=== PATIENT | male | born 1965 | race Caucasian/White ===

== ENCOUNTER 2019-08-04 18:17 | Inpatient (IN) | payer BC ==
[2019-08-04] MEDS ORDERED: SODIUM CHLORIDE 0.9% 500 ML 500 ML IV STA (19:11)
[2019-08-04] MEDS ORDERED: KETOROLAC 30 MG/ML 1 ML VIAL IVP STA (19:11)
--- NOTE | 2019-08-04 19:34 | ED ---
Recheck HPI <Moisés Leblanc - Last Filed: 08/04/19 21:45> - General Source: patient Mode of arrival: ambulatory Limitations: no limitations <Merly Garcia - Last Filed: 08/04/19 22:24> - General Chief Complaint: Recheck/Abnormal Lab/Rx Stated Complaint: back pain Time Seen by Provider: 08/04/19 18:48 - History of Present Illness Initial Comments: Patient is a 54-year-old male presenting to the emergency Department with complaints of jaundice. Patient states he is currently at [facility] ondary to alcohol and some and states he went to get his medicines this morning and the nurse instead that he looked yellow needed to go to the ER. Patient states he does use a tanning bed and thought he was just TM. Patient also complaining of low back pain. Patient states he had an injury to his back approximate 4 years ago after falling over tree. He denies any fractures or surgeries from this fall but states he has judgment and low back pain. Patient states it has been worse the last 2 days. He admits to history of hypertension, no other acute abnormalities. He denies any abdominal surgeries. He denies any abdominal pain at this time but states he often feels like his stomach feels "full." He denies fever, nausea, vomiting, diarrhea. He denies chest pain, shortness of breath. He states he only eats about once a day. He's been having regular bowel movements. He has no other complaints at this time. Upon arrival to the ER his vitals are stable. (Merly Gacria) - Related Data Allergies Allergy/AdvReac Type Severity Reaction Status Date / Time No Known Allergies Allergy Verified 08/04/19 20:35 Review of Systems ROS Other: All systems not noted in ROS Statement are negative. <Moisés Leblanc - Last Filed: 08/04/19 21:45> ROS Other: All systems not noted in ROS Statement are negative. <Merly Garcia - Last Filed: 08/04/19 22:24> ROS Statement: Those systems with pertinent positive or pertinent negative responses have been documented in the HPI. Past Medical History Past Medical History: Hyperlipidemia, Hypertension History of Any Multi-Drug Resistant Organisms: None Reported Past Surgical History: No Surgical Hx Reported Past Psychological History: No Psychological Hx Reported Smoking Status: Never smoker Past Alcohol Use History: None Reported Past Drug Use History: None Reported <RadhaNataliaMerly L - Last Filed: 08/04/19 22:24> General Exam Limitations: no limitations <Merly Garcia - Last Filed: 08/04/19 22:24> - General Exam Comments Initial Comments: GENERAL: Well-appearing, well-nourished and in no acute distress. HEAD: Atraumatic, normocephalic. EYES: Pupils equal round and reactive to light, extraocular movements intact, conjunctiva are normal. Bilateral scleral icterus. ENT: TMs normal, nares patent, oropharynx clear without exudates. Moist mucous me mbranes. NECK: Normal range of motion, supple without lymphadenopathy or JVD. LUNGS: Breath sounds clear to auscultation bilaterally and equal. No wheezes rales or rhonchi. HEART: Regular rate and rhythm without murmurs, rubs or gallops. ABDOMEN: Soft, nontender, normoactive bowel sounds. No guarding, no rebound. No masses appreciated. : Deferred EXTREMITIES: Normal range of motion, no pitting or edema. No clubbing or cyanosis. NEUROLOGICAL: Cranial nerves II through XII grossly intact. Normal speech, normal gait. PSYCH: Normal mood, normal affect. SKIN: Warm, Dry, normal turgor. Patient is jaundiced. (Merly Garcia) Course Vital Signs 08/04/19 08/04/19 08/04/19 18:32 20:53 22:03 Temperature 98.1 F 98 F Pulse Rate 85 87 89 Respiratory 16 16 16 Rate Blood Pressure 115/73 121/69 124/87 O2 Sat by Pulse 98 99 99 Oximetry Medical Decision Making - Lab Data Result diagrams: 08/04/19 19:45 08/04/19 19:45 <Moisés Leblanc - Last Filed: 08/04/19 21:45> - Lab Data Result diagrams: 08/04/19 19:45 08/04/19 19:45 <Merly Garcia - Last Filed: 08/04/19 22:24> - Medical Decision Making I saw this patient in conjunction with the physician pharmacy technician assistant. I performed independent history and physical exam. Agree with case management. Case is discussed with Dr. Holguin, covering for gastroenterology, his treatment recommendations are incorporated. Case also discussed with Dr. Cisneros, covering surgery. (Moisés Leblanc) Patient is a 54-year-old male presenting from [facility] for jaundice. Patien t also has intermittent abdominal pain and fullness. His vitals are stable here. Patient is jaundiced on exam as well as scleral icterus. Patient's coags are normal, sodium is low at 131, glucose is 354, bilirubin is 15.8, elevated liver enzymes including alk phos at 1044. Serum alcohol and Tylenol level was normal. Ultrasound of the liver shows hepatomegaly, gallbladder sludge and wall thickening, dilated common duct at 1.5 cm. patient was given fluids, pain control. Case was discussed with Dr. Leblanc. Patient will be admitted for transaminitis, cholecystitis under Dr. Jerez with consult to GI and surgery. Patient was started on antibiotics. Patient is in agreement with this plan of care. (Merly Garcia) - Lab Data Lab Results 08/04/19 08/04/19 08/04/19 Range/Units 19:45 19:45 19:45 WBC 10.1 (3.8-10.6) k/uL RBC 3.40 L (4.30-5.90) m/uL Hgb 11.9 L (13.0-17.5) gm/dL Hct 36.5 L (39.0-53.0) % MCV 107.4 H (80.0-100.0) fL MCH 35.1 H (25.0-35.0) pg MCHC 32.7 (31.0-37.0) g/dL RDW 13.5 (11.5-15.5) % Plt Count 239 (150-450) k/uL Neutrophils % 83 % Lymphocytes % 7 % Monocytes % 7 % Eosinophils % 2 % Basophils % 0 % Neutrophils # 8.3 H (1.3-7.7) k/uL Lymphocytes # 0.7 L (1.0-4.8) k/uL Monocytes # 0.7 (0-1.0) k/uL Eosinophils # 0.2 (0-0.7) k/uL Basophils # 0.0 (0-0.2) k/uL Macrocytosis Moderate PT 9.9 (9.0-12.0) sec INR 0.9 (<1.2) APTT 24.4 (22.0-30.0) sec Sodium 131 L (137-145) mmol/L Potassium 4.5 (3.5-5.1) mmol/L Chloride 96 L (98-107) mmol/L Carbon Dioxide 20 L (22-30) mmol/L Anion Gap 15 mmol/L BUN 19 (9-20) mg/dL Creatinine 0.60 L (0.66-1.25) mg/dL Est GFR (CKD-EPI)AfAm >90 (>60 ml/min/1.73 sqM) Est GFR (CKD-EPI)NonAf >90 (>60 ml/min/1.73 sqM) Glucose 354 H (74-99) mg/dL Calcium 9.7 (8.4-10.2) mg/dL Magnesium 1.7 (1.6-2.3) mg/dL Total Bilirubin 15.8 H* (0.2-1.3) mg/dL AST 244 H (17-59) U/L ALT 179 H (4-49) U/L Alkaline Phosphatase 1044 H (38-126) U/L Total Protein 6.7 (6.3-8.2) g/dL Albumin 3.8 (3.5-5.0) g/dL Amylase 32 (30-110) U/L Lipase 21 L (23-300) U/L Acetaminophen <10.0 ug/mL Serum Alcohol <10 mg/dL Disposition <Moisés Leblanc - Last Filed: 08/04/19 21:45> Is patient prescribed a controlled substance at d/c from ED?: No Decision Date: 08/04/19 Decision Time: 21:29 <Merly Garcia - Last Filed: 08/04/19 22:24> Clinical Impression: Cholecystitis, Transaminitis, Jaundice Disposition: ADMITTED IP TO THIS [facility] Condition: Stable
[2019-08-04 20:47] LABS: Basophils % (A) 0 %; Eosinophils # (A) 0.2 k/uL (0-0.7); Eosinophils % (A) 2 %; HCT 36.5 % (39.0-53.0); HGB 11.9 gm/dL (13.0-17.5); Lymphocytes # (A) 0.7 k/uL (1.0-4.8); Lymphocytes % (A) 7 %; MCH 35.1 pg (25.0-35.0); MCHC 32.7 g/dL (31.0-37.0); MCV 107.4 fL (80.0-100.0); Macrocytosis Moderate; Monocytes # (A) 0.7 k/uL (0-1.0); Monocytes % (A) 7 %; Neutrophils # (A) 8.3 k/uL (1.3-7.7); Neutrophils % (A) 83 %; Platelet Count 239 k/uL (150-450); RDW 13.5 % (11.5-15.5); WBC 10.1 k/uL (3.8-10.6)
--- NOTE | 2019-08-04 20:47 | US ---
EXAMINATION TYPE: US liver DATE OF EXAM: 08/04/2019 COMPARISON: NONE CLINICAL HISTORY: jaundice. Jaundice. Bloated. HTN. Hyperlipidemia. EXAM MEASUREMENTS: Liver Length: 18.5 cm Gallbladder Wall: 0.41 cm CBD: 1.46 cm Right Kidney: 12.4 x 5.9 x 6.4 cm Pancreas: Limited. Liver: Heterogeneous. Appears to have increased echogenicity. Measures enlarged. Hyperechoic, indist inct area seen left lobe: 3.0 x 3.3 x 2.5 cm. Gallbladder: Appears distended and has internal echoes. Measures 10.4 cm in length and 4.5 cm in wid th. Wall appears to be thickened. Evidence for sonographic Arciniega's sign: No CBD: dilated. Right Kidney: No hydronephrosis or masses seen IMPRESSION: 1. Hepatomegaly. 2. Possible hemangioma within the liver. Other etiologies are not excluded. This is not well-visualiz ed left lobe liver. 3. Gallbladder sludge and wall thickening. Correlate for acute cholecystitis. 4. Dilated common bile duct at 1.5 cm.
--- NOTE | 2019-08-04 20:49 | XR ---
EXAMINATION TYPE: XR lumbar spine 2 or 3V DATE OF EXAM: 08/04/2019 COMPARISON: None HISTORY: Pain TECHNIQUE: Three-view lumbar spine FINDINGS: There are 5 lumbar-type vertebral bodies. The pedicles are intact. Disc heights are preserv ed. Vertebral body heights are preserved. Some spondylolysis of the thoracolumbar junction is present . Note is made of a biliary stent. IMPRESSION: 1. No acute osseous abnormality lumbar spine.
[2019-08-04 20:51] LABS: ALT 179 U/L (4-49); AST 244 U/L (17-59); Acetaminophen <10.0 ug/mL; African American GFR (CKD) >90 (>60 ml/min/1.73 sqM); Albumin 3.8 g/dL (3.5-5.0); Alcohol <10 mg/dL; Alkaline Phosphatase 1044 U/L (38-126); Amylase 32 U/L (30-110); Anion Gap 15 mmol/L; Blood Urea Nitrogen 19 mg/dL (9-20); Calcium 9.7 mg/dL (8.4-10.2); Carbon Dioxide 20 mmol/L (22-30); Chloride 96 mmol/L (98-107); Glucose 354 mg/dL (74-99); Magnesium 1.7 mg/dL (1.6-2.3); Non-African American GFR(CKD) >90 (>60 ml/min/1.73 sqM); Potassium 4.5 mmol/L (3.5-5.1); Sodium 131 mmol/L (137-145); Total Protein 6.7 g/dL (6.3-8.2)
[2019-08-04 21:05] LABS: Total Bilirubin 15.8 mg/dL (0.2-1.3)
[2019-08-04 21:13] LABS: INR 0.9 (<1.2); Partial Thromboplastin Time 24.4 sec (22.0-30.0); Prothrombin Time 9.9 sec (9.0-12.0)
[2019-08-04] MEDS ORDERED: IBUPROFEN 400 MG TAB PO PRN (21:27)
[2019-08-04] MEDS ORDERED: NALOXONE 0.4 MG/ML 1 ML VIAL IV PRN (21:27)
[2019-08-04] MEDS ORDERED: ONDANSETRON 4 MG/2 ML VIAL IVP PRN (21:27)
[2019-08-04] MEDS ORDERED: PIPERACILLIN-TAZOBACTAM 3.375 GM in SODIUM CHLORIDE 0.9% 100 ML IVPB STA (21:44)
[2019-08-04] MEDS ORDERED: LORazepam 2 MG/ML INJ IV PRN ×3 (21:59)
[2019-08-04] MEDS ORDERED: THIAMINE 100 MG/ML 2 ML VIAL IM STA (21:59)
[2019-08-04] MEDS: THIAMINE 100 MG TAB PO SCH (23:03)
[2019-08-04] MEDS: KETOROLAC 30 MG/ML 1 ML VIAL IVP PRN (23:09)
[2019-08-04] MEDS: traZODone HCL 50 MG TAB PO SCH (23:56)
[2019-08-04] MEDS: SODIUM CHLORIDE 0.9% 1,000 ML IV SCH (23:57)
[2019-08-05] MEDS: KETOROLAC 30 MG/ML 1 ML VIAL IVP PRN ×3 (04:29→16:55)
[2019-08-05 04:59] LABS: Appearance,Urine Clear (Clear); Bilirubin,Urine 3+ (Negative); Blood,Urine Negative (Negative); Color,Urine Dark Brown; Glucose,Urine (UA) 3+ (Negative); Ketones,Urine Negative (Negative); Leukocyte Esterase,Urine Negative (Negative); Nitrite,Urine Negative (Negative); PH, Urine 5.5 (5.0-8.0); Protein,Urine Negative (Negative); Specific Gravity,Urine 1.019 (1.001-1.035)
[2019-08-05] MEDS: MORPHINE SULFATE 4 MG/ML SYRINGE IV PRN ×4 (07:28→22:05)
[2019-08-05] MEDS: THIAMINE 100 MG TAB PO SCH ×2 (10:51→16:55)
[2019-08-05] MEDS: SODIUM CHLORIDE 0.9% 1,000 ML IV SCH (10:55)
--- NOTE | 2019-08-05 14:00 | P.GSCN ---
<Vanita Palacio - Last Filed: 08/05/19 13:51> History of Present Illness Consult date: 08/05/19 Reason for Consult: Transaminitis, cholecystitis, jaundice Requesting physician: Merly Garcia History of present illness: CHIEF COMPLAINT: Jaundice HISTORY OF PRESENT ILLNESS: 54-year-old male who is currently at [facility] for rehab due to alcohol abuse. Patient reports the staff at [facility] noticed he was becoming more jaundiced and recommended he come to the hospital. Patient reports he has been having back pain over the last few months. He denies abdominal pain. Denies intolerance to greasy or fatty foods. Patient reports last drink was 2 weeks ago. PAST MEDICAL HISTORY: See list. PAST SURGICAL HISTORY: See list. MEDICATIONS: See list. ALLERGIES: See list. SOCIAL HISTORY: History of alcohol abuse REVIEW OF SYSTEMS: CONSTITUTIONAL: Denies fever or chills. HEENT: Denies blurred vision, vision changes, or eye pain. Denies hemoptysis ENDOCRINE: Denies heat or cold intolerance. CARDIOVASCULAR: Denies chest pain or pressure. RESPIRATORY: No shortness of breath. GASTROINTESTINAL: See HPI for pertinent findings NEURO: Denies history of seizures. PSYCH: No suicidal ideation HEMATOLOGIC: Denies bleeding disorders. LYMPHATIC: The patient denies any lumps and bumps around the neck. GENITOURINARY: Denies any blood in urine or increased urinary frequency. MUSCULOSKELETAL: Reports back pain. Denies myalgias. Denies joint swelling. Denies decreased range of motion beyond patients baseline. SKIN: Denies pruitis. Denies rash. Reports jaundice PHYSICAL EXAM: VITAL SIGNS: Reviewed GENERAL: Well-developed in no acute distress. HEENT: Bilateral sclera icterus. Extraocular movements grossly intact. Moist buccal mucosa. Head is atraumatic, normocephalic. Hears conversational speech. No nasal drainage. NECK: Supple without lymphadenopathy. CHEST: Non-labored respirations and equal bilateral excursions. CARDIOVASCULAR: Regular rate with regular rhythm. Palpable 2+ radial pulses. ABDOMEN: Soft. Nondistended. Nontender. MUSCULOSKELETAL: No clubbing, cyanosis or edema. NEUROLOGIC: No focal or lateralizing signs. Cranial nerves II through XII grossly intact. PSYCH: Appropriate affect. Alert and oriented to person, place and time. SKIN: Well perfused. Good skin turgor. Jaundice LABORATORY DATA: WBC 10.1. Hemoglobin 11.9. Platelet count 239. Sodium 131. Potassium 4.5. BUN 19. Creatinine 0.60. Bilirubin 15.8. AST 244. ALT 179. Alkaline phosphatase 1044. IMAGING: Liver ultrasound: Hepatomegaly. Possible hemangioma within the liver. Gal lbladder sludge and wall thickening. Correlate for acute cholecystitis. Dilated common bile duct at 1.5 cm. ASSESSMENT: 1. Jaundice 2. History of alcohol abuse 3. Hepatomegaly 4. Transaminitis 5. Hyperbilirubinemia 6. Abnormal ultrasound revealing gallbladder sludge and wall thickening PLAN: NPO until evaluated by GI service. Okay for liquid diet from surgical standpoint Monitor CMP GI on consult. Await recommendations and input No immediate plans for cholecystectomy Nurse practitioner note has been reviewed by physician. Signing provider agrees with the documented findings, assessment, and plan of care. Past Medical History Past Medical History: Hyperlipidemia, Hypertension Additional Past Medical History / Comment(s): CHRONIC BACK PAIN R/T FALLING OUT OF TREE STAND 3 YEARS AGO; TROUBLE SLEEPING; 15 YEARS AGO FELL ON ICE AND HAD FLUID DRAINED OUT OF HEAD AT [facility] IN [facility] History of Any Multi-Drug Resistant Organisms: None Reported Past Surgical History: No Surgical Hx Reported Past Anesthesia/Blood Transfusion Reactions: No Reported Reaction Past Psychological History: No Psychological Hx Reported Smoking Status: Never smoker Past Alcohol Use History: None Reported Additional Past Alcohol Use History / Comment(s): STATES DRANK [employer] FOR MANY YEARS; LAST DRINK 07/22/2019; CURRENTLY STAYING AT [facility] Past Drug Use History: None Reported Medications and Allergies Home Medications Medication Instructions Recorded Confirmed Type Acetaminophen Tab [Tylenol] 650 mg PO Q4H MDD 6 TABS/24 HRS 08/04/19 08/04/19 History Chlorpheniramine Maleate 4 mg PO Q4H PRN 08/04/19 08/04/19 History [Chlor-Trimeton] Mag Hydrox/Aluminum Hyd/Simeth 30 ml PO Q4H PRN MDD UP 08/04/19 08/04/19 History [Mylanta Maximum Strength Liq] Multivitamins, Thera [Multivitamin 1 tab PO DAILY 08/04/19 08/04/19 History (formulary)] Naproxen 500 mg PO BID@0600,1730 08/04/19 08/04/19 History Propranolol HCl [Inderal Xl] 80 mg PO DAILY@0600 08/04/19 08/04/19 History Thiamine HCl [Vitamin B-1] 100 mg PO DAILY 08/04/19 08/04/19 History amLODIPine [Norvasc] 5 mg PO DAILY@0600 08/04/19 08/04/19 History traZODone HCL 50 mg PO HS@2200 08/04/19 08/04/19 History Allergies Allergy/AdvReac Type Severity Reaction Status Date / Time No Known Allergies Allergy Verified 08/04/19 22:45 Surgical - Exam Vital Signs Temp Pulse Resp BP Pulse Ox 98.1 F 85 16 115/73 98 08/04/19 18:32 08/04/19 18:32 08/04/19 18:32 08/04/19 18:32 08/04/19 18:32 Results - Labs 08/04/19 19:45 08/04/19 19:45 Abnormal Lab Results - Last 24 Hours (Table) 08/04/19 08/04/19 08/05/19 Range/Units 19:45 19:45 04:50 RBC 3.40 L (4.30-5.90) m/uL Hgb 11.9 L (13.0-17.5) gm/dL Hct 36.5 L (39.0-53.0) % MCV 107.4 H (80.0-100.0) fL MCH 35.1 H (25.0-35.0) pg Neutrophils # 8.3 H (1.3-7.7) k/uL Lymphocytes # 0.7 L (1.0-4.8) k/uL Sodium 131 L (137-145) mmol/L Chloride 96 L (98-107) mmol/L Carbon Dioxide 20 L (22-30) mmol/L Creatinine 0.60 L (0.66-1.25) mg/dL Glucose 354 H (74-99) mg/dL Total Bilirubin 15.8 H* (0.2-1.3) mg/dL AST 244 H (17-59) U/L ALT 179 H (4-49) U/L Alkaline Phosphatase 1044 H (38-126) U/L Lipase 21 L (23-300) U/L Urine Glucose (UA) 3+ H (Negative) Urine Bilirubin 3+ H (Negative) Diabetes panel 08/04/19 Range/Units 19:45 Sodium 131 L (137-145) mmol/L Potassium 4.5 (3.5-5.1) mmol/L Chloride 96 L (98-107) mmol/L Carbon Dioxide 20 L (22-30) mmol/L BUN 19 (9-20) mg/dL Creatinine 0.60 L (0.66-1.25) mg/dL Glucose 354 H (74-99) mg/dL Calcium 9.7 (8.4-10.2) mg/dL AST 244 H (17-59) U/L ALT 179 H (4-49) U/L Alkaline Phosphatase 1044 H (38-126) U/L Total Protein 6.7 (6.3-8.2) g/dL Albumin 3.8 (3.5-5.0) g/dL Calcium panel 08/04/19 Range/Units 19:45 Calcium 9.7 (8.4-10.2) mg/dL Albumin 3.8 (3.5-5.0) g/dL Pituitary panel 08/04/19 Range/Units 19:45 Sodium 131 L (137-145) mmol/L Potassium 4.5 (3.5-5.1) mmol/L Chloride 96 L (98-107) mmol/L Carbon Dioxide 20 L (22-30) mmol/L BUN 19 (9-20) mg/dL Creatinine 0.60 L (0.66-1.25) mg/dL Glucose 354 H (74-99) mg/dL Calcium 9.7 (8.4-10.2) mg/dL Adrenal panel 08/04/19 Range/Units 19:45 Sodium 131 L (137-145) mmol/L Potassium 4.5 (3.5-5.1) mmol/L Chloride 96 L (98-107) mmol/L Carbon Dioxide 20 L (22-30) mmol/L BUN 19 (9-20) mg/dL Creatinine 0.60 L (0.66-1.25) mg/dL Glucose 354 H (74-99) mg/dL Calcium 9.7 (8.4-10.2) mg/dL Total Bilirubin 15.8 H* (0.2-1.3) mg/dL AST 244 H (17-59) U/L ALT 179 H (4-49) U/L Alkaline Phosphatase 1044 H (38-126) U/L Total Protein 6.7 (6.3-8.2) g/dL Albumin 3.8 (3.5-5.0) g/dL <Zoey Cisneros N - Last Filed: 08/05/19 16:45> History of Present Illness History of present illness: Patient seen and evaluated. Ultrasound of the gallbladder independently reviewed with moderately dilated common bile duct including elevated total bilirubin over 15. Additionally, patient does have gallbladder sludge. Clinical picture is inconsistent with acute cholecystitis. WBC count normal. GI consultation pending. May benefit from MRCP including evaluation of the pancreas to exclude underlying neoplasm. Surgical - Exam Vital Signs Temp Pulse Resp BP Pulse Ox 98.1 F 85 16 115/73 98 08/04/19 18:32 08/04/19 18:32 08/04/19 18:32 08/04/19 18:32 08/04/19 18:32 Results - Labs 08/04/19 19:45 08/05/19 14:49 Abnormal Lab Results - Last 24 Hours (Table) 08/04/19 08/04/19 08/05/19 Range/Units 19:45 19:45 04:50 RBC 3.40 L (4.30-5.90) m/uL Hgb 11.9 L (13.0-17.5) gm/dL Hct 36.5 L (39.0-53.0) % MCV 107.4 H (80.0-100.0) fL MCH 35.1 H (25.0-35.0) pg Neutrophils # 8.3 H (1.3-7.7) k/uL Lymphocytes # 0.7 L (1.0-4.8) k/uL Sodium 131 L (137-145) mmol/L Chloride 96 L (98-107) mmol/L Carbon Dioxide 20 L (22-30) mmol/L Creatinine 0.60 L (0.66-1.25) mg/dL Glucose 354 H (74-99) mg/dL Total Bilirubin 15.8 H* (0.2-1.3) mg/dL AST 244 H (17-59) U/L ALT 179 H (4-49) U/L Alkaline Phosphatase 1044 H (38-126) U/L Total Protein (6.3-8.2) g/dL Albumin (3.5-5.0) g/dL Lipase 21 L (23-300) U/L Urine Glucose (UA) 3+ H (Negative) Urine Bilirubin 3+ H (Negative) 08/05/19 Range/Units 14:49 RBC (4.30-5.90) m/uL Hgb (13.0-17.5) gm/dL Hct (39.0-53.0) % MCV (80.0-100.0) fL MCH (25.0-35.0) pg Neutrophils # (1.3-7.7) k/uL Lymphocytes # (1.0-4.8) k/uL Sodium (137-145) mmol/L Chloride (98-107) mmol/L Carbon Dioxide (22-30) mmol/L Creatinine 0.62 L (0.66-1.25) mg/dL Glucose 207 H (74-99) mg/dL Total Bilirubin 16.1 H* (0.2-1.3) mg/dL AST 290 H (17-59) U/L ALT 185 H (4-49) U/L Alkaline Phosphatase 851 H (38-126) U/L Total Protein 6.2 L (6.3-8.2) g/dL Albumin 3.4 L (3.5-5.0) g/dL Lipase (23-300) U/L Urine Glucose (UA) (Negative) Urine Bilirubin (Negative) Diabetes panel 08/04/19 08/05/19 Range/Units 19:45 14:49 Sodium 131 L 137 (137-145) mmol/L Potassium 4.5 4.3 (3.5-5.1) mmol/L Chloride 96 L 104 (98-107) mmol/L Carbon Dioxide 20 L 22 (22-30) mmol/L BUN 19 15 (9-20) mg/dL Creatinine 0.60 L 0.62 L (0.66-1.25) mg/dL Glucose 354 H 207 H (74-99) mg/dL Calcium 9.7 9.3 (8.4-10.2) mg/dL AST 244 H 290 H (17-59) U/L ALT 179 H 185 H (4-49) U/L Alkaline Phosphatase 1044 H 851 H (38-126) U/L Total Protein 6.7 6.2 L (6.3-8.2) g/dL Albumin 3.8 3.4 L (3.5-5.0) g/dL Calcium panel 08/04/19 08/05/19 Range/Units 19:45 14:49 Calcium 9.7 9.3 (8.4-10.2) mg/dL Albumin 3.8 3.4 L (3.5-5.0) g/dL Pituitary panel 08/04/19 08/05/19 Range/Units 19:45 14:49 Sodium 131 L 137 (137-145) mmol/L Potassium 4.5 4.3 (3.5-5.1) mmol/L Chloride 96 L 104 (98-107) mmol/L Carbon Dioxide 20 L 22 (22-30) mmol/L BUN 19 15 (9-20) mg/dL Creatinine 0.60 L 0.62 L (0.66-1.25) mg/dL Glucose 354 H 207 H (74-99) mg/dL Calcium 9.7 9.3 (8.4-10.2) mg/dL Adrenal panel 08/04/19 08/05/19 Range/Units 19:45 14:49 Sodium 131 L 137 (137-145) mmol/L Potassium 4.5 4.3 (3.5-5.1) mmol/L Chloride 96 L 104 (98-107) mmol/L Carbon Dioxide 20 L 22 (22-30) mmol/L BUN 19 15 (9-20) mg/dL Creatinine 0.60 L 0.62 L (0.66-1.25) mg/dL Glucose 354 H 207 H (74-99) mg/dL Calcium 9.7 9.3 (8.4-10.2) mg/dL Total Bilirubin 15.8 H* 16.1 H* (0.2-1.3) mg/dL AST 244 H 290 H (17-59) U/L ALT 179 H 185 H (4-49) U/L Alkaline Phosphatase 1044 H 851 H (38-126) U/L Total Protein 6.7 6.2 L (6.3-8.2) g/dL Albumin 3.8 3.4 L (3.5-5.0) g/dL Assessment and Plan (1) Alcohol abuse Current Visit: Yes Status: Acute Code(s): F10.10 - ALCOHOL ABUSE, UNCOMPLICATED SNOMED Code(s): 46999339 (2) Common bile duct dilation Current Visit: Yes Status: Acute Code(s): K83.8 - OTHER SPECIFIED DISEASES OF BILIARY TRACT SNOMED Code(s): 157990316 (3) Gallbladder sludge Current Visit: Yes Status: Acute Code(s): K82.8 - OTHER SPECIFIED DISEASES OF GALLBLADDER SNOMED Code(s): 42119205 (4) Jaundice Current Visit: Yes Status: Acute Code(s): R17 - UNSPECIFIED JAUNDICE SNOMED Code(s): 35282005 (5) Transaminitis Current Visit: Yes Status: Acute Code(s): R74.0 - NONSPEC ELEV OF LEVELS OF TRANSAMNS & LACTIC ACID DEHYDRGNSE SNOMED Code(s): 634768931
[2019-08-05 15:47] LABS: ALT 185 U/L (4-49); AST 290 U/L (17-59); African American GFR (CKD) >90 (>60 ml/min/1.73 sqM); Albumin 3.4 g/dL (3.5-5.0); Alkaline Phosphatase 851 U/L (38-126); Anion Gap 11 mmol/L; Blood Urea Nitrogen 15 mg/dL (9-20); Calcium 9.3 mg/dL (8.4-10.2); Carbon Dioxide 22 mmol/L (22-30); Chloride 104 mmol/L (98-107); Glucose 207 mg/dL (74-99); Non-African American GFR(CKD) >90 (>60 ml/min/1.73 sqM); Potassium 4.3 mmol/L (3.5-5.1); Sodium 137 mmol/L (137-145); Total Protein 6.2 g/dL (6.3-8.2)
[2019-08-05 15:54] LABS: Total Bilirubin 16.1 mg/dL (0.2-1.3)
--- NOTE | 2019-08-05 17:33 | HP ---
HISTORY AND PHYSICAL CHIEF COMPLAINT: Back pain and jaundice. HISTORY OF PRESENT ILLNESS: This is the first admission for this 54-year-old white male who was sent over from [place], where he is being treated for alcoholism. He was complaining of flank pain, and they thought he looked jaundiced. He came to the emergency room. He has been having discomfort in the right upper quadrant on and off for about 3 years. In the emergency room his bilirubin was 15.8, AST was 244 and his ALT 179. Alkaline phosphatase was 1044. He has had no fever or chills. He has had no vomiting. REVIEW OF SYSTEMS: He has had no other complaints, problems or symptoms. He has not noticed dark urine or acholic stool. He review of systems is otherwise normal. Past medical history, family history, and personal and social histories reveal he is NOT ALLERGIC TO ANY MEDICATION. He has had no surgery. He is treated for hypercholesterolemia and hyperlipidemia. He does not smoke. PHYSICAL EXAMINATION: Blood pressure is 140/85 with a pulse of 78, respirations of 36, and he is afebrile. In general he he appeared to be jaundiced. He was not in any acute distress. Skin was dry. Lymph nodes were not enlarged. Head, ears, eyes, nose, mouth and throat were normal. Neck veins were not distended. Thyroid was not enlarged. Chest is clear. Cardiac exam is normal. The abdomen is soft and slightly tender in the right upper quadrant. He had no flank tenderness. Bowel sounds were present. Extremities were normal. Neurologically he is intact. IMPRESSION: 1. Obstructive jaundice. 2. Alcoholism. 3. History of hypertension. 4. History of hyperlipidemia. PLAN: 1. Bed rest. 2. IV fluids. 3. Consult with Gastroenterology and General Surgery. MMODL / IJN: [id number] /
--- NOTE | 2019-08-05 17:37 | PN ---
PROGRESS NOTE DATE OF SERVICE: 08/04/2019 CHIEF COMPLAINT: Obstructive jaundice. HISTORY OF PRESENT ILLNESS: This gentleman has been stable. He has had no fever, chills, vomiting, etc. PHYSICAL EXAMINATION: He is deeply jaundiced. Chest is clear. Cardiac exam is normal. Abdomen is soft, nontender. IMPRESSION: 1. Back pain. 2. Alcoholism. 3. Probable obstructive jaundice. PLAN: Await ERCP. MMODL / IJN: [id number] /
[2019-08-05] MEDS: traZODone HCL 50 MG TAB PO SCH (20:07)
[2019-08-06] MEDS: MORPHINE SULFATE 4 MG/ML SYRINGE IV PRN ×4 (02:45→15:40)
[2019-08-06] MEDS: SODIUM CHLORIDE 0.9% 1,000 ML IV SCH ×2 (02:46→15:41)
--- NOTE | 2019-08-06 05:59 | P.CONS ---
History of Present Illness - Reason for Consult Consult date: 08/05/19 Jaundice, elevated liver enzymes Requesting physician: Thang Jerez - Chief Complaint Abnormal laboratory evaluation, jaundice - History of Present Illness 54-year-old male with a medical history significant for hypertension, hyperlipidemia and alcohol abuse who presented due to abnormal outpatient laboratory evaluation and jaundice. The patient reports dark urine over the 4-5 days prior to presentation and yellowing of the skin over a few days prior to presentation. He denies any associated abdominal pain. He does report back pain after a fall 3-4 years ago which occurs intermittently. No association of this back pain with pain in his abdomen. Patient has been sober for approximately 2 weeks. Prior to that he had been drinking heavily since he was approximately 16 years old. Alcohol intake consisted of a 6 pack, or a 1/5 of liquor. He denies any unintentional weight loss. No family history or personal history of liver or pancreas disease. Ultrasound of the abdomen was significant for a 1.5 cm common bile ducts with gallbladder sludge and hepatomegaly. Laboratory evaluation on presentation was significant for a WBC 10.1, hemoglobin 11.9, platelet count 239,000, total bilirubin 15.8, alkaline phosphatase 1044, AST 244 and ALT 179 with an INR of 0.9 and negative testing for acetaminophen. Review of Systems REVIEW OF SYSTEMS: CONSTITUTIONAL: Denies any fevers, chills, weight change or fatigue. CARDIOVASCULAR: Denies any chest pain, palpitations high or low blood pressures RESPIRATORY: Denies any shortness of breath, hemoptysis or cough. GENITOURINARY: No dysuria or hematuria, but does report dark urine. MUSCULOSKELETAL: No weakness reported. SKIN: Denies any new rashes or lesions, or pallor but has noted jaundice. PSYCHIATRIC: Denies any depression or anxiety, patient has a known history of alcohol abuse. NEUROLOGY: Denies headache, denies any new focal deficits. EARS/NOSE/THROAT: No recent hearing change, congestion, nasal discharge or sore throat. EYES: No pain in eyes, discharge or change in vision. GASTROINTESTINAL: As per HPI. Past Medical History Past Medical History: Hyperlipidemia, Hypertension Additional Past Medical History / Comment(s): CHRONIC BACK PAIN R/T FALLING OUT OF TREE STAND 3 YEARS AGO; TROUBLE SLEEPING; 15 YEARS AGO FELL ON ICE AND HAD FLUID DRAINED OUT OF HEAD AT [facility] History of Any Multi-Drug Resistant Organisms: None Reported Past Surgical History: No Surgical Hx Reported Past Anesthesia/Blood Transfusion Reactions: No Reported Reaction Past Psychological History: No Psychological Hx Reported Smoking Status: Never smoker Past Alcohol Use History: None Reported Additional Past Alcohol Use History / Comment(s): STATES DRANK CHURCH LITE AND SCHNAPPS FOR MANY YEARS; LAST DRINK 07/22/2019; CURRENTLY STAYING AT [place] Past Drug Use History: None Reported Additional History: Family history: Were reviewed with the patient and noncontributory to current medical presentation. Medications and Allergies Home Medications Medication Instructions Recorded Confirmed Type Acetaminophen Tab [Tylenol] 650 mg PO Q4H MDD 6 TABS/24 HRS 08/04/19 08/04/19 History Chlorpheniramine Maleate 4 mg PO Q4H PRN 08/04/19 08/04/19 History [Chlor-Trimeton] Mag Hydrox/Aluminum Hyd/Simeth 30 ml PO Q4H PRN MDD UP 08/04/19 08/04/19 History [Mylanta Maximum Strength Liq] Multivitamins, Thera [Multivitamin 1 tab PO DAILY 08/04/19 08/04/19 History (formulary)] Naproxen 500 mg PO BID@0600,1730 08/04/19 08/04/19 History Propranolol HCl [Inderal Xl] 80 mg PO DAILY@0600 08/04/19 08/04/19 History Thiamine HCl [Vitamin B-1] 100 mg PO DAILY 08/04/19 08/04/19 History amLODIPine [Norvasc] 5 mg PO DAILY@0600 08/04/19 08/04/19 History traZODone HCL 50 mg PO HS@2200 08/04/19 08/04/19 History Allergies Allergy/AdvReac Type Severity Reaction Status Date / Time No Known Allergies Allergy Verified 08/04/19 22:45 Physical Exam Vitals: Vital Signs Temp Pulse Pulse Resp BP BP BP 08/05/19 15:00 98.2 F 96 16 128/72 08/05/19 09:30 97.5 F L 08/05/19 07:33 78 20 145/79 08/05/19 04:48 70 16 08/05/19 02:03 98.9 F 70 18 101/66 08/05/19 00:00 79 18 08/04/19 22:57 98.1 F 79 18 134/91 08/04/19 22:03 98 F 89 16 124/87 08/04/19 20:53 87 16 121/69 08/04/19 18:32 98.1 F 85 16 115/73 Pulse Ox 08/05/19 15:00 94 L 08/05/19 09:30 08/05/19 07:33 96 08/05/19 04:48 08/05/19 02:03 99 08/05/19 00:00 08/04/19 22:57 98 08/04/19 22:03 99 08/04/19 20:53 99 08/04/19 18:32 98 Intake and Output 08/05/19 08/05/19 08/05/19 06:59 14:59 22:59 Intake Total 600 Balance 600 Intake: IV 600 Sodium Chloride 0.9% 1, 600 000 ml @ 75 mls/hr IV . [id number] [facility] Rx#:[id number] Other: Voiding Method Toilet Toilet # Voids 1 Weight 99.79 kg On physical examination, patient appears comfortable in no apparent distress. HEAD: Normocephalic, atraumatic. EYES: Scleral icterus. No conjunctival injection. MOUTH: No lesions, tongue midline. NECK: Trachea midline, no gross abnormalities. CHEST: Clear to auscultation with no wheezing or rhonchi appreciated. HEART: Regular rate and rhythm. ABDOMEN: Soft, nontender to palpation. Bowel sounds are positive. No organomegaly. No guarding or rigidity. EXTREMITIES: No pedal edema. SKIN: No rashes, jaundice. NEUROLOGIC: Alert and oriented x3. No focal deficits. Results CBC & Chem 7: 08/04/19 19:45 08/05/19 14:49 Labs: Abnormal Lab Results - Last 24 Hours (Table) 08/04/19 08/04/19 08/05/19 Range/Units 19:45 19:45 04:50 RBC 3.40 L (4.30-5.90) m/uL Hgb 11.9 L (13.0-17.5) gm/dL Hct 36.5 L (39.0-53.0) % MCV 107.4 H (80.0-100.0) fL MCH 35.1 H (25.0-35.0) pg Neutrophils # 8.3 H (1.3-7.7) k/uL Lymphocytes # 0.7 L (1.0-4.8) k/uL Sodium 131 L (137-145) mmol/L Chloride 96 L (98-107) mmol/L Carbon Dioxide 20 L (22-30) mmol/L Creatinine 0.60 L (0.66-1.25) mg/dL Glucose 354 H (74-99) mg/dL Total Bilirubin 15.8 H* (0.2-1.3) mg/dL AST 244 H (17-59) U/L ALT 179 H (4-49) U/L Alkaline Phosphatase 1044 H (38-126) U/L Lipase 21 L (23-300) U/L Urine Glucose (UA) 3+ H (Negative) Urine Bilirubin 3+ H (Negative) US - abdomen: report reviewed (Ultrasound of the abdomen with a 1.5 cm common bile duct, gallbladder sludge and hepatomegaly.) Assessment and Plan (1) Elevated liver enzymes Narrative/Plan: 54-year-old male presenting due to abnormal liver enzymes of the liver with associated jaundice and dark urine. This was noted over the past 4-5 days prior to presentation. He has a long-standing history of alcohol abuse and reports sobriety over the past few weeks. He denies any associated abdominal pain. He did have ultrasound of abdomen in evaluation which showed gallbladder sludge and a 1.5 cm common bile duct. Unclear if elevated liver enzymes are related to alcoholic hepatitis given his long-standing history of alcohol abuse, with plan for MRI/MRCP to rule out pancreatic mass causing obstruction, biliary obstruction from choledocholithiasis or other hepatobiliary etiology, liver serologies also ordered to rule out intrinsic liver disease. Current Visit: Yes Status: Acute Code(s): R74.8 - ABNORMAL LEVELS OF OTHER SERUM ENZYMES SNOMED Code(s): 754756783 (2) Alcohol abuse Current Visit: Yes Status: Acute Code(s): F10.10 - ALCOHOL ABUSE, UNCOMPLICATED SNOMED Code(s): 13631357 (3) Common bile duct dilation Current Visit: Yes Status: Acute Code(s): K83.8 - OTHER SPECIFIED DISEASES OF BILIARY TRACT SNOMED Code(s): 541469711 (4) Gallbladder sludge Current Visit: Yes Status: Acute Code(s): K82.8 - OTHER SPECIFIED DISEASES OF GALLBLADDER SNOMED Code(s): 48624425 (5) Jaundice Current Visit: Yes Status: Acute Code(s): R17 - UNSPECIFIED JAUNDICE SNOMED Code(s): 44877409 Plan: Supportive care Okay for diet as tolerated MRI of the abdomen with and without contrast ordered Continue to monitor CBC, CMP Full liver serologies including tumor markers ordered Appreciate recommendations from surgical service Continue supportive care Continue to monitor for signs or symptoms of alcohol withdrawal No plans for endoscopic evaluation at this time, and unless MRCP is consistent with choledocholithiasis will hold off Thank you for allowing us to participate in the care of this patient we will continue to follow
[2019-08-06] MEDS: THIAMINE 100 MG TAB PO SCH ×2 (07:00→17:42)
[2019-08-06 08:39] LABS: ALT 160 U/L (4-49); AST 237 U/L (17-59); African American GFR (CKD) >90 (>60 ml/min/1.73 sqM); Albumin 3.1 g/dL (3.5-5.0); Alkaline Phosphatase 760 U/L (38-126); Anion Gap 9 mmol/L; Bilirubin, Conjugated 8.3 mg/dL (0.0-0.3); Bilirubin, Delta 5.1 mg/dL (0.0-0.2); Bilirubin,Unconjugated 1.8 mg/dL (0.0-1.1); Blood Urea Nitrogen 10 mg/dL (9-20); Calcium 9.1 mg/dL (8.4-10.2); Carbon Dioxide 26 mmol/L (22-30); Chloride 102 mmol/L (98-107); Glucose 209 mg/dL (74-99); Non-African American GFR(CKD) >90 (>60 ml/min/1.73 sqM); Potassium 4.3 mmol/L (3.5-5.1); Sodium 137 mmol/L (137-145); Total Protein 5.8 g/dL (6.3-8.2)
[2019-08-06 08:42] LABS: Total Bilirubin 15.2 mg/dL (0.2-1.3)
[2019-08-06] MEDS: KETOROLAC 30 MG/ML 1 ML VIAL IVP PRN ×2 (10:25→17:00)
--- NOTE | 2019-08-06 10:44 | P.PN ---
<Vanita Palacio A - Last Filed: 08/06/19 10:39> Subjective Progress Note Date: 08/06/19 CHIEF COMPLAINT: Jaundice HISTORY OF PRESENT ILLNESS: Patient examined at the bedside with Dr. Cisneros. Patient denies abdominal pain. He reports back pain. Vital signs stable. He is afebrile. Bilirubin 15.2. AST 237. ALT 160. Alkaline phosphatase 760. PHYSICAL EXAM: VITAL SIGNS: Reviewed GENERAL: Well-developed in no acute distress. HEENT: Bilateral sclera icterus. Extraocular movements grossly intact. Moist buccal mucosa. Head is atraumatic, normocephalic. Hears conversational speech. No nasal drainage. NECK: Supple without lymphadenopathy. CHEST: Non-labored respirations and equal bilateral excursions. CARDIOVASCULAR: Regular rate with regular rhythm. Palpable 2+ radial pulses. ABDOMEN: Soft. Nondistended. Nontender. MUSCULOSKELETAL: No clubbing, cyanosis or edema. NEUROLOGIC: No focal or lateralizing signs. Cranial nerves II through XII grossly intact. PSYCH: Appropriate affect. Alert and oriented to person, place and time. SKIN: Well perfused. Good skin turgor. Jaundice ASSESSMENT: 1. Jaundice 2. History of alcohol abuse 3. Hepatomegaly 4. Transaminitis 5. Hyperbilirubinemia 6. Abnormal ultrasound revealing gallbladder sludge and wall thickening PLAN: Okay for diet from surgical standpoint. Defer to GI service MRI abdomen ordered by Dr. Holguin. Await results. Monitor CMP No immediate plans for cholecystectomy Nurse practitioner note has been reviewed by physician. Signing provider agrees with the documented findings, assessment, and plan of care. Objective - Vital Signs Vital signs: Vital Signs Temp 97.7 F 08/06/19 06:58 Pulse 66 08/06/19 06:58 Resp 16 08/06/19 06:58 BP 124/71 08/06/19 06:58 Pulse Ox 100 08/06/19 06:58 Intake & Output 08/05/19 08/06/19 08/06/19 18:59 06:59 18:59 Intake Total 600 Balance 600 Weight 99.79 kg Intake: IV 600 Sodium Chloride 0.9% 1, 600 000 ml @ 75 mls/hr IV . [id number] [facility] Rx#:[id number] Other: Voiding Method Toilet Toilet - Labs CBC & Chem 7: 08/04/19 19:45 08/06/19 06:59 Labs: Abnormal Lab Results - Last 24 Hours (Table) 08/05/19 08/06/19 Range/Units 14:49 06:59 Creatinine 0.62 L 0.65 L (0.66-1.25) mg/dL Glucose 207 H 209 H (74-99) mg/dL Total Bilirubin 16.1 H* 15.2 H* (0.2-1.3) mg/dL Conjugated Bilirubin 8.3 H (0.0-0.3) mg/dL Unconjugated Bilirubin 1.8 H (0.0-1.1) mg/dL Delta Bilirubin 5.1 H (0.0-0.2) mg/dL AST 290 H 237 H (17-59) U/L ALT 185 H 160 H (4-49) U/L Alkaline Phosphatase 851 H 760 H (38-126) U/L Total Protein 6.2 L 5.8 L (6.3-8.2) g/dL Albumin 3.4 L 3.1 L (3.5-5.0) g/dL <Zoey Cisneros N - Last Filed: 08/06/19 19:00> Subjective MR independently reviewed with dilated CBD. MR report reviewed consistent with s uspicion of pancreatic adenocarcinoma. Recommend management of pancreatic adenocarcinoma with CBD obstruction at tertiary care center. Objective - Vital Signs Vital signs: Vital Signs Temp 98 F 08/06/19 14:14 Pulse 82 08/06/19 14:14 Resp 12 08/06/19 14:14 BP 133/81 08/06/19 14:14 Pulse Ox 96 08/06/19 14:14 Intake & Output 08/05/19 08/06/19 08/06/19 18:59 06:59 18:59 Intake Total 600 600 Balance 600 600 Weight 99.79 kg Intake: IV 600 600 Sodium Chloride 0.9% 1, 600 600 000 ml @ 75 mls/hr IV . [id number] [facility] Rx#:[id number] Other: Voiding Method Toilet Toilet # Voids 2 - Labs CBC & Chem 7: 08/04/19 19:45 08/06/19 06:59 Labs: Abnormal Lab Results - Last 24 Hours (Table) 08/06/19 08/06/19 Range/Units 06:59 06:59 Creatinine 0.65 L (0.66-1.25) mg/dL Glucose 209 H (74-99) mg/dL Iron 62 L (65-175) ug/dL TIBC 162 L (228-460) ug/dL Ferritin 1089.7 H (22.0-322.0) ng/mL Total Bilirubin 15.2 H* (0.2-1.3) mg/dL Conjugated Bilirubin 8.3 H (0.0-0.3) mg/dL Unconjugated Bilirubin 1.8 H (0.0-1.1) mg/dL Delta Bilirubin 5.1 H (0.0-0.2) mg/dL AST 237 H (17-59) U/L ALT 160 H (4-49) U/L Alkaline Phosphatase 760 H (38-126) U/L Total Protein 5.8 L (6.3-8.2) g/dL Total Protein (PEP) 5.0 L (6.2-8.2) g/dL Albumin 3.1 L (3.5-5.0) g/dL Assessment and Plan (1) Alcohol abuse Status: Acute Code(s): F10.10 - ALCOHOL ABUSE, UNCOMPLICATED SNOMED Code(s): 41436432 (2) Common bile duct dilation Status: Acute Code(s): K83.8 - OTHER SPECIFIED DISEASES OF BILIARY TRACT SNOMED Code(s): 238827981 (3) Gallbladder sludge Status: Acute Code(s): K82.8 - OTHER SPECIFIED DISEASES OF GALLBLADDER SNOME D Code(s): 17415312 (4) Jaundice Status: Acute Code(s): R17 - UNSPECIFIED JAUNDICE SNOMED Code(s): 75023739 (5) Transaminitis Status: Acute Code(s): R74.0 - NONSPEC ELEV OF LEVELS OF TRANSAMNS & LACTIC ACID DEHYDRGNSE SNOMED Code(s): 065708466
--- NOTE | 2019-08-06 12:56 | PN ---
PROGRESS NOTE CHIEF COMPLAINT: Obstructive jaundice. HISTORY OF PRESENT ILLNESS: This gentleman is doing well. He has been seen by Gastroenterology and Surgery. Apparently an MRI was performed and we are awaiting ERCP. REVIEW OF SYSTEMS: He is not having any significant pain now. He is not lethargic. PHYSICAL EXAMINATION: He remains jaundiced. Chest is clear. Cardiac exam is normal. Abdomen is soft and nontender. IMPRESSION: 1. Obstructive jaundice. 2. Alcoholism. PLAN: Await further evaluation by Gastroenterology and continue to follow liver functions. MMODL / IJN: [id number] /
--- NOTE | 2019-08-06 13:10 | MR ---
"MR abdomen with and without contrast HISTORY: Elevated bilirubin, jaundice Multiplanar multisequence and postcontrast images obtained through the abdomen following [address] IV. Comparison ultrasound liver dated 08/04/2019 The gallbladder is distended. Common bile duct is dilated. Within the distal common bile duct there a re focal low signal foci consistent with choledocholithiasis, coronal image #20 and axial image 18 of the T2 data sets dilated intrahepatic biliary ducts are also present. Pancreatic duct is dilated. Th e gland is somewhat atrophic. There is a soft tissue mass present at the head of the pancreas showing similar signal intensity to remaining pancreatic tissue on some of the sequences, series 601 and ser ies 302 show abnormal increased signal within the head of the pancreas, intermediate signal on series #401. Slight differences in enhancement of the pancreatic head on contrast administration suggest a mass measuring approximately 2.9 cm x 1.6 cm x 2.1 cm. There are nodes present at the level of the un cinate process, head of pancreas, distal common bile duct, largest measuring 17 mm in short axis, axi al image 53 series 701. Additional short axis node measuring 13 to 14 mm on axial image [address] images, 13 mm on axial image 64. Tortuous arterial supply is present in close proximity to the hea d of pancreas and distal common bile duct. Liver shows no mass. Adrenal glands, kidneys, spleen are within normal limits. Lung bases are clear. Aorta shows normal caliber. IMPRESSION: Pancreatic carcinoma, double duct sign, choledocholithiasis, lymphadenopathy. Attention t o arterial at the level of the head of pancreas and distal common bile duct. A Yellow level critical message alert has been initiated for Thang Jerez MD via the [employer] | Critical Results System on 08/06/2019 1:08 PM. This message alert has been sent to Zoran Jerez MD via the preferences provided by the clinician for the receipt of Radiology Critical F indings. Message ID [id number]. A Yellow level critical message alert has been initiated for Zoey Cisneros MD via the [employer] | Critical Results System on 08/06/2019 1:08 PM. This message alert has been sent to Zoey Robison MD via the preferences provided by the clinician for the receipt of Radiology Critical Findi ngs. Message ID [id number]."
[2019-08-06 14:14] VITALS: BP 133/81; PULSE 82; RESP 12; TEMP 98
--- NOTE | 2019-08-06 14:44 | PN ---
PROGRESS NOTE ADDENDUM TO PROGRESS NOTE: The patient's MRI came back demonstrating a pancreatic mass suggestive of pancreatic carcinoma. This was discussed with Gastroenterology, and the patient will be transferred to a [facility]. ZULAY / FELIX: [id number] /
[2019-08-06 17:22] LABS: % Iron Saturation 38.27 (15.00-50.00); Ferritin 1089.7 ng/mL (22.0-322.0); Iron 62 ug/dL (65-175); Total Iron Binding Capacity 162 ug/dL (228-460)
[2019-08-06] MEDS ORDERED: MORPHINE SULFATE 4 MG/ML SYRINGE IVP STA (17:23)
[2019-08-06] MEDS ORDERED: CALCIUM CARBONATE 500 MG CHEWABLE PO STA (18:01)
[2019-08-06 18:44] LABS: Alpha Fetoprotein, Tumor Mkr <2.5 ng/mL (0.0-7.9)
[2019-08-06 18:58] LABS: Hepatitis A Antibody IgM Non-Reactive (Non-Reactive); Hepatitis B Core IgM Non-Reactive (Non-Reactive); Hepatitis B Surface Antigen Non-Reactive (Non-Reactive); Hepatitis C IgG Antibody Non-Reactive (Non-Reactive)
[2019-08-06 19:02] LABS: Cancer Antigen 19-9 123.9 U/mL (0.0-34.9)
--- NOTE | 2019-08-06 23:17 | DS ---
DISCHARGE SUMMARY CHIEF COMPLAINT: Back pain, jaundice. HISTORY OF PRESENT ILLNESS AND PHYSICAL EXAM: Details of this man's history and physical can be found in the initial workup. LABORATORY STUDIES: While he was in a hospital he had laboratory sent laboratory studies, details of which can be found in the laboratory section of his chart. COURSE IN THE HOSPITAL: After admission he was placed on bedrest, started on intravenous fluids and seen by Gastroenterology. He is being worked up for his jaundice, which was felt to be obstructive. It was thought that he had cholecystitis with cholelithiasis that he probably had a common duct stone. However, an MRI was ordered and demonstrated a mass in the head of the pancreas. Arrangements were made for him to be transferred to [facility]. FINAL DIAGNOSIS: 1. Obstructive jaundice. 2. Cholecystitis. 3. Cholelithiasis. 4. Carcinoma of the pancreas. 5. Alcoholism. OPERATIONS: None. CONSULTATIONS: Gastroenterology. MMODSarah / FRANCISCON: [id number] /
[2019-08-07 10:06] LABS: Ceruloplasmin 58.6 mg/dL (20.0-60.0)
[2019-08-09 14:13] LABS: Albumin 3.08 g/dL (3.80-4.90); Gamma Globulin 0.42 g/dL (0.70-1.50)
== END 2019-08-06 18:09 | disposition short-term general hospital (02) | DRG 445 ==
LOC: EC 18:17 → 4SSUR 21:46
PROVIDERS: ADMIT Family Medicine; ATTEND Family Medicine
DX: K80.11 Calculus of gallbladder with chronic cholecystitis with obstruction (principal); C25.9 Malignant neoplasm of pancreas, unspecified; E78.5 Hyperlipidemia, unspecified; F10.20 Alcohol dependence, uncomplicated; F32.9 Major depressive disorder, single episode, unspecified; I10 Essential (primary) hypertension; G89.29 Other chronic pain; M54.5 Low back pain; R16.0 Hepatomegaly, not elsewhere classified; Z79.899 Other long term (current) drug therapy
CPT/HCPCS: 36415; 72100; 74183; 76705; 80053; 80074; 80320; 80329; 81003; 82103; 82105; 82150; 82248; 82390; 82728; 83516; 83540; 83550; 83690; 83735; 84165; 84466; 85025; 85610; 85730; 86038; 86301; 86376; 96361; 96365; 96372; 96375; 99285